=== PATIENT | male | born 1980 | race Caucasian/White ===

== ENCOUNTER 2018-03-12 11:41 | Emergency (ER) | payer MEDICAID, OTHER ==
[~2018-03-12] VITALS: Ht 177.8 cm; Wt 65.8 kg
[2018-03-12 11:52] VITALS: BP 113/57
[2018-03-12] MEDS ORDERED: cefTRIAXone SOD 1,000 MG VL IM ONE (12:45)
[2018-03-12] MEDS ORDERED: LIDOCAINE 1%HCL (LOCAL ANESTH) 10 ML MDV ONE (12:48)
[2018-03-12] MEDS ORDERED: cefTRIAXone SOD 1,000 MG VL ONE (12:48)
== END 2018-03-12 13:03 | disposition home or self-care (01) ==
LOC: ER 11:44
DX: J45.909 Unspecified asthma, uncomplicated (principal); L02.31 Cutaneous abscess of buttock
CPT/HCPCS: 96372; 99283; J0696; J2001

== ENCOUNTER 2020-10-30 14:48 | Emergency (ER) | payer MEDICAID ==
[~2020-10-30] VITALS: Ht 167.6 cm; Wt 56.7 kg
[2020-10-30 14:55] VITALS: BP 125/65
[2020-10-30] MEDS ORDERED: SODIUM CHLORIDE 0.9% 1,000 ML IV ONE (15:15)
== END 2020-10-30 16:40 | disposition left against medical advice (07) ==
LOC: EDBD 14:48 → ER 14:48
DX: R53.1 Weakness (principal); F12.10 Cannabis abuse, uncomplicated; F15.10 Other stimulant abuse, uncomplicated; F17.210 Nicotine dependence, cigarettes, uncomplicated; J45.909 Unspecified asthma, uncomplicated
CPT/HCPCS: 93005

== ENCOUNTER 2023-02-04 15:33 | Emergency (ER) | payer MEDICAID ==
[~2023-02-04] VITALS: Ht 170.2 cm; Wt 56.8 kg
[2023-02-04 16:31] VITALS: PULSE 78; RESP 11; TEMP 98.1; O2SAT 91
[2023-02-04 17:10] LABS: Basophils # (auto) 0 10 ^3/uL (0-0.2); Basophils % (auto) 0.6 % (0.0-2.0); Eosinophils # (auto) 0.1 10 ^3/uL (0-0.8); Eosinophils % (auto) 1.2 % (0.0-7.0); Hematocrit 41.9 % (41.0-53.0); Lymphocytes # (auto) 1.1 10 ^3/uL (0.4-5.4); Lymphocytes % (auto) 14.4 % (10.0-50.0); Mean Corpuscular Hemoglobin 29.7 pg (28.0-32.0); Mean Corpuscular Hgb Conc. 33.3 g/dL (32.0-36.0); Mean Corpuscular Volume 89.1 fL (80.0-100.0); Monocytes # (auto) 0.5 10 ^3/uL (0-1.3); Monocytes % (auto) 7.1 % (0.0-12.0); Neutrophils # (auto) 5.6 10 ^3/uL (1.6-8.6); Neutrophils % (auto) 76.7 % (37.0-80.0); Nucleated Red Blood Cells % 0.1 %; Red Blood Cells 4.71 10^6/uL (4.5-5.90); Red Cell Distribution Width 13.4 % (11.8-14.3); White Blood Cell 7.3 10^3/uL (4.4-10.8)
[2023-02-04 17:25] LABS: Alanine Aminotransferase 39 U/L (7-40); Albumin 4.8 g/dL (3.2-4.8); Alkaline Phosphatase 100 U/L (46-116); Anion Gap 7 (5-15); Aspartate Aminotransferase 30 U/L (13-40); BUN/Creatinine Ratio 8.6 (10.0-20.0); Blood Urea Nitrogen 10 mg/dL (9-23); Calcium 9.5 mg/dL (8.7-10.4); Carbon Dioxide 26 mmol/L (20-30); Chloride 108 mmol/L (98-107); Glucose 113 mg/dL (74-106); Potassium 4.3 mmol/L (3.5-5.1); Sodium 141 mmol/L (136-145)
[2023-02-04 17:26] LABS: Bilirubin, Total 0.4 mg/dL (0.2-1.0)
[2023-02-04 18:00] VITALS: BP 115/78; PULSE 70; RESP 9; O2SAT 92
== END 2023-02-04 16:48 | disposition home or self-care (01) ==
LOC: EDBD 15:33 → ER 15:33
DX: S70.02XA Contusion of left hip, initial encounter (principal); S09.8XXA Other specified injuries of head, initial encounter; J45.909 Unspecified asthma, uncomplicated; M54.2 Cervicalgia; M54.50 Low back pain, unspecified; F17.210 Nicotine dependence, cigarettes, uncomplicated; F12.10 Cannabis abuse, uncomplicated; F15.10 Other stimulant abuse, uncomplicated; W05.0XXA Fall from non-moving wheelchair, initial encounter; Y93.89 Activity, other specified; Y92.481 Parking lot as the place of occurrence of the external cause; Y99.8 Other external cause status
CPT/HCPCS: 36415; 70450; 72125; 72192; 80053; 80320; 85025

== ENCOUNTER 2023-02-05 02:06 | Inpatient (IN) | payer MEDICAID ==
[~2023-02-05] VITALS: Ht 177.8 cm; Wt 56.8 kg
[2023-02-05 02:45] LABS: Basophils # (auto) 0 10 ^3/uL (0-0.2); Basophils % (auto) 0.5 % (0.0-2.0); Eosinophils # (auto) 0.1 10 ^3/uL (0-0.8); Eosinophils % (auto) 0.7 % (0.0-7.0); Hematocrit 43.9 % (41.0-53.0); Hemoglobin 14.5 g/dL (13.5-17.5); Lymphocytes # (auto) 1.4 10 ^3/uL (0.4-5.4); Lymphocytes % (auto) 14.1 % (10.0-50.0); Mean Corpuscular Hemoglobin 29.6 pg (28.0-32.0); Mean Corpuscular Volume 89.7 fL (80.0-100.0); Monocytes # (auto) 0.8 10 ^3/uL (0-1.3); Monocytes % (auto) 8.2 % (0.0-12.0); Neutrophils # (auto) 7.4 10 ^3/uL (1.6-8.6); Neutrophils % (auto) 76.5 % (37.0-80.0); Red Cell Distribution Width 13.6 % (11.8-14.3); White Blood Cell 9.7 10^3/uL (4.4-10.8)
[2023-02-05 02:52] VITALS: PULSE 107; RESP 13; O2SAT 95
[2023-02-05 03:01] LABS: Alanine Aminotransferase 40 U/L (7-40); Albumin 5.1 g/dL (3.2-4.8); Alkaline Phosphatase 107 U/L (46-116); Anion Gap 10 (5-15); Aspartate Aminotransferase 29 U/L (13-40); BUN/Creatinine Ratio 13.1 (10.0-20.0); Bilirubin, Total 0.5 mg/dL (0.2-1.0); Blood Urea Nitrogen 16 mg/dL (9-23); Calcium 10.1 mg/dL (8.7-10.4); Carbon Dioxide 25 mmol/L (20-30); Chloride 107 mmol/L (98-107); Glucose 121 mg/dL (74-106); Magnesium 2.3 mg/dL (1.6-2.6); Potassium 3.8 mmol/L (3.5-5.1); Sodium 142 mmol/L (136-145)
[2023-02-05 03:02] LABS: Total Protein 8.4 g/dL (5.7-8.2)
[2023-02-05 03:28] LABS: INR 1.04 (0.9-1.15); Partial Thromboplastin Time 27.3 SEC (24.5-34.5); Prothrombin Time 10.9 sec (9.3-11.8)
[2023-02-05 03:58] LABS: Base Excess 1.3 mmol/L (-2.0-2.0)
[2023-02-05] MEDS ORDERED: DexAMETHasone SOD PHOS 10MG/1ML VIAL INJ IV ONE (04:00)
[2023-02-05] MEDS ORDERED: cefTRIAXone 1GM/50ML D5W 50 ML IV ONE (04:00)
[2023-02-05] MEDS ORDERED: AZITHROMYCIN 500MG/ 250ML 250 ML IV ONE (04:00)
[2023-02-05] MEDS ORDERED: ALBUTEROL SULF 2.5 MG/0.5ML(0.5%) NEB SOLN HHN ONE (04:00)
[2023-02-05] MEDS ORDERED: ASPirin 81 mg TAB PO ONE (04:00)
[2023-02-05] MEDS ORDERED: ONDANSETRON HCL 4 MG/2 ML VIAL IV ONE (04:00)
[2023-02-05] MEDS ORDERED: ACETAMINOPHEN 325 MG TAB PO ONE (04:00)
[2023-02-05] MEDS ORDERED: IPRATROPIUM BROM 0.5 MG/2.5ML INH SOL HHN ONE (04:00)
[2023-02-05 04:14] LABS: Blood Alcohol 3.8 mg/dL (<10); Magnesium 2.3 mg/dL (1.6-2.6)
[2023-02-05 04:38] LABS: COVID19 ANTIGEN SOFIA FIA NEGATIVE (NEGATIVE)
[2023-02-05] MEDS ORDERED: DOCUSATE SOD 100 MG CAP PO PRN (04:45)
[2023-02-05] MEDS ORDERED: HYDROcodone-ACET 5/325MG TAB PO PRN (04:45)
[2023-02-05] MEDS ORDERED: ACETAMINOPHEN 325 MG TAB PO PRN (04:45)
[2023-02-05] MEDS ORDERED: IPRATROPIUM BROM 0.5 MG/2.5ML INH SOL NEB PRN (04:45)
[2023-02-05] MEDS ORDERED: ONDANSETRON HCL 4 MG/2 ML VIAL IV PRN (04:45)
[2023-02-05] MEDS ORDERED: ALBUTEROL SULF 2.5 MG/0.5ML(0.5%) NEB SOLN NEB PRN (04:45)
[2023-02-05 04:58] LABS: Respiratory Syncytial Virus Ag Negative
[2023-02-05 04:59] LABS: Rapid Influenza A Negative (Negative); Rapid Influenza B Negative (Negative)
[2023-02-05] MEDS ORDERED: LORazepam 2MG/ML-1ML VIAL IV PRN (05:00)
[2023-02-05 05:31] LABS: Acetaminophen < 2.0 UG/ML (10.0-20.0)
[2023-02-05 05:32] LABS: Salicylate < 3.0 mg/dL (2.8-20.0)
[2023-02-05] MEDS: SODIUM CHLOR 0.9% PF (SALINE LOCK) 10ML VIAL/SYR IV SCH ×2 (06:03→14:10)
[2023-02-05 06:07] LABS: Basophils # (auto) 0 10 ^3/uL (0-0.2); Basophils % (auto) 0.4 % (0.0-2.0); Eosinophils # (auto) 0.1 10 ^3/uL (0-0.8); Hematocrit 40.3 % (41.0-53.0); Hemoglobin 13.6 g/dL (13.5-17.5); Lymphocytes # (auto) 1.9 10 ^3/uL (0.4-5.4); Lymphocytes % (auto) 20.7 % (10.0-50.0); Mean Corpuscular Hemoglobin 30.2 pg (28.0-32.0); Mean Corpuscular Hgb Conc. 33.7 g/dL (32.0-36.0); Mean Corpuscular Volume 89.6 fL (80.0-100.0); Monocytes # (auto) 0.8 10 ^3/uL (0-1.3); Monocytes % (auto) 9.3 % (0.0-12.0); Neutrophils # (auto) 6.2 10 ^3/uL (1.6-8.6); Neutrophils % (auto) 68.6 % (37.0-80.0); Nucleated Red Blood Cells % 0.1 %; Red Blood Cells 4.49 10^6/uL (4.5-5.90); Red Cell Distribution Width 13.3 % (11.8-14.3)
[2023-02-05 06:21] LABS: Alanine Aminotransferase 39 U/L (7-40); Albumin 4.4 g/dL (3.2-4.8); Alkaline Phosphatase 90 U/L (46-116); Anion Gap 12 (5-15); Aspartate Aminotransferase 29 U/L (13-40); BUN/Creatinine Ratio 18.2 (10.0-20.0); Blood Urea Nitrogen 20 mg/dL (9-23); Calcium 9.4 mg/dL (8.5-10.1); Carbon Dioxide 23 mmol/L (20-30); Chloride 107 mmol/L (98-107); Glucose 106 mg/dL (74-106); Potassium 4.1 mmol/L (3.5-5.1); Sodium 142 mmol/L (136-145); Total Protein 7.2 g/dL (5.7-8.2)
[2023-02-05 06:22] LABS: Bilirubin, Total 0.4 mg/dL (0.2-1.0)
[2023-02-05] MEDS ORDERED: NITROGLYCERIN 0.4 MG SL TAB SL PRN (07:15)
[2023-02-05] MEDS ORDERED: MORPHINE SULFATE INJ 2 MG/ml SYRG IV PRN (07:15)
[2023-02-05 07:35] VITALS: PULSE 100; RESP 12; O2SAT 98
[2023-02-05 08:58] VITALS: BP 114/86; PULSE 100; RESP 12; TEMP 97.6; O2SAT 98
[2023-02-05] MEDS: SULFAMETH-TRIMETH 80/16MG-ML 10 ML in D5W 5% 250 ML IV SCH ×2 (09:00→14:58)
[2023-02-05 10:00] VITALS: O2SAT 98
[2023-02-05] MEDS ORDERED: DexAMETHasone SOD PHOS 10MG/1ML VIAL INJ IV SCH (10:00)
[2023-02-05] MEDS ORDERED: ASPirin 81 mg TAB PO SCH (10:00)
[2023-02-05 13:24] LABS: Urine Bacteria NONE SEEN /hpf (None Seen); Urine Blood Negative /uL (Negative); Urine Clarity Clear (Clear); Urine Color Yellow (Yellow); Urine Mucus FEW (None Seen); Urine Protein, UAD 1+ (Negative); Urine Specific Gravity 1.031 (1.001-1.035); Urine WBC 2 /hpf (0 - 3)
[2023-02-05 13:51] LABS: Amphetamine Screen, Urine Pos (NEGATIVE); Barbiturate Scree,Urine Neg (NEGATIVE); Benzodiazephine Screen, Urine Neg (NEGATIVE); Cannabinoid Screen, Urine Neg (NEGATIVE); Cocaine Screen, Urine Neg (NEGATIVE); Opiate Scree,Urine Neg (NEGATIVE); Phencyclidine Screen, Urine Pos (NEGATIVE)
[2023-02-05 15:35] VITALS: BP 98/64; PULSE 86; RESP 14; O2SAT 92
== END 2023-02-05 16:48 | disposition home or self-care (01) | DRG 203 ==
LOC: ER 02:06 → TELE 07:05
PROVIDERS: ADMIT Nurse Practitioner Family; ATTEND Nurse Practitioner Family
DX: R07.89 Other chest pain (principal); S09.90XA Unspecified injury of head, initial encounter; F29 Unspecified psychosis not due to a substance or known physiological condition; R62.7 Adult failure to thrive; Z20.822 Contact with and (suspected) exposure to COVID-19; F11.90 Opioid use, unspecified, uncomplicated; G89.29 Other chronic pain; J45.909 Unspecified asthma, uncomplicated; W18.39XA Other fall on same level, initial encounter; K59.00 Constipation, unspecified; R09.02 Hypoxemia; Z68.1 Body mass index [BMI] 19.9 or less, adult; Z88.8 Allergy status to other drugs, medicaments and biological substances; Y93.89 Activity, other specified; Y92.89 Other specified places as the place of occurrence of the external cause; Y99.8 Other external cause status; Z21 Asymptomatic human immunodeficiency virus [HIV] infection status
CPT/HCPCS: 36415; 36600; 71045; 80053; 80307; 80320; 80329; 81001; 82805; 83605; 83735; 83880; 84484; 85025; 85610; 85730; 87040; 87426; 87804; 87807; 93005; 94640; 96365; 96368; 96375; 99291; G0378; J0696; J1100; J2405; J3490; J7060

== ENCOUNTER → 2023-06-13 | Emergency (ER) | payer MEDICAID ==
[~2023-06-13] VITALS: Ht 180.3 cm; Wt 59.0 kg
[2023-06-13 11:51] VITALS: BP 119/73; PULSE 72; RESP 18; O2SAT 95
== END | disposition left against medical advice (07) ==
LOC: ER 11:28
DX: T78.40XA Allergy, unspecified, initial encounter (principal); J45.909 Unspecified asthma, uncomplicated; F17.210 Nicotine dependence, cigarettes, uncomplicated; F12.10 Cannabis abuse, uncomplicated; F15.10 Other stimulant abuse, uncomplicated; Z88.1 Allergy status to other antibiotic agents; Z88.6 Allergy status to analgesic agent; X58.XXXA Exposure to other specified factors, initial encounter

== ENCOUNTER 2023-08-22 04:21 | Emergency (ER) | payer MEDICAID ==
[~2023-08-22] VITALS: Ht 180.3 cm; Wt 61.0 kg
[2023-08-22 05:02] VITALS: BP 113/75; PULSE 63; RESP 20; TEMP 98.5; O2SAT 98
[2023-08-22] MEDS ORDERED: IBUP1TAB5 PO (05:02)
[2023-08-22] MEDS: IBUPROFEN 800 MG TAB PO ONE (05:30)
== END 2023-08-22 05:00 | disposition home or self-care (01) ==
LOC: ER 04:21
DX: S52.502A Unspecified fracture of the lower end of left radius, initial encounter for closed fracture (principal); J45.909 Unspecified asthma, uncomplicated; F17.210 Nicotine dependence, cigarettes, uncomplicated; Z88.1 Allergy status to other antibiotic agents; Z88.6 Allergy status to analgesic agent; Z91.041 Radiographic dye allergy status; W06.XXXA Fall from bed, initial encounter; Y93.89 Activity, other specified; Y92.89 Other specified places as the place of occurrence of the external cause; Y99.8 Other external cause status
CPT/HCPCS: 29125; 73110

== ENCOUNTER 2025-03-04 16:22 | Emergency (ER) | payer MEDICAID ==
[~2025-03-04] VITALS: Ht 177.8 cm; Wt 55.0 kg
[~2025-03-04 16:22] MED LIST: IBUP1TAB5 PO
--- NOTE | 2025-03-04 17:42 | DVH ---
Indication: lower abd pain n/v Technique: CT axial images of the abdomen and pelvis are obtained without contrast. Coronal and sagit daniele reformats were obtained. Radiation Dose Information: CTDI volume is 4.99 mGy. Dose-length product is 256.45 mGy*cm Comparison: CT ABD/PEL on DOS: 11/25/22, CT ABD/PEL on DOS: 11/18/22 FINDINGS: There is limited interpretation of the abdomen and pelvis without administration of intravenous contr ast. The lung bases demonstrate atelectasis. Adrenal glands, spleen, pancreas, liver unremarkable in shape. No CT evidence for cholelithiasis. No hydronephrosis/ nephrolithiasis. Stomach partially distended. Small bowel loops are normal in caliber. Large volume stool throughout the colon there are no secondary signs for appendicitis. Atherosclerotic disease. Bladder partially distended. No free pelvic fluid. No inguinal lymphadenopa thy. Lytic lesions within the bilateral iliac bones measuring up to 2. cm within the right iliac bone IMPRESSION: Limited evaluation without contrast. Large volume stool throughout the colon suggesting constipation. Lytic lesions within the bilateral iliac bones, similar to previous examination. Correlate for inter osseous bone cysts, hemangioma, metastases, myeloma. Other findings as described.
--- NOTE | 2025-03-04 17:45 | ED.PDOC ---
GI ASSESSMENT HPI Comments HPI: 44-year-old male presents to emergency depart for evaluation of lower abdominal pain constant nonradiating. Onset of symptoms yesterday. No alleviating or precipitating factors. Patient states he has history of constipation and he is on methadone. Last bowel movement was this morning very small normal in color. Denies any nausea or vomiting chest pain or shortness of breath. Past Medical history: botulism HIV, Asthma, on methadone Past Surgical history: left hand sx Medications: Methadone Social History: Denies smoking, ETOH, and drug use. Allergies: propofol HPI: Poor Historian. REVIEW OF SYSTEMS: CONSTITUTIONAL: Denies acute: fever, diaphoresis, chills, generalized weakness. HEAD: Denies acute: headache, photophobia Eyes: Denies acute: Double vision, vision loss, eye pain, eye discharge. EARS: Denies acute: tinnitus, hearing loss, ear discharge, ear pain, THROAT: Denies acute: sore throat, swelling, difficulty swallowing , pain with swallowing, change in voice. NECK: Denies acute: neck pain, neck swelling, stiff neck. HEART: Denies acute : chest pain, palpitations, LUNGS: Denies acute: SOB, wheezing, cough, hemoptysis ABDOMEN: Denies acute: Nausea, Vomiting, diarrhea, melena , hematemesis, hematochezia SKIN: Denies acute: rash, redness, lesions, itchiness. EXTREMITIES: Denies acute: calf pain, numbness, tingling, weakness, denies pain in extremity. Denies acute: Low back pain. Neuro: Denies acute: focal neurological deficit, motor or sensory focal neurological deficit, tremors, seizure like activity, confusion, dizziness, change in mental status, loss of bowel or bladder function, cauda equina like symptoms. : Denies acute: dysuria, hematuria, flank pain, increase in urinary frequency. PSYCH: Denies acute: hallucination, suicidal ideation, homicidal ideation. PHYSICAL EXAM: General: ----my----acute distress, awake and alert. Head: normocephalic, atraumatic. No raccoon's eyes, no haile sign. Neck: supple, trachea is midline, no swelling. Throat: Normal phonation. Eyes:, no erythema, no purulent discharge, no proptosis, no icterus. Heart: regular rate, regular rhythm, no significant murmur appreciated. Lungs: no apparent respiratory distress, Able to speak in full sentences. No wheezing, no rhonchi, no crackles. No stridors Clear to auscultation bilaterally. Abdomen: Mild lower abdominal tender to palpation, non distended, soft, no guarding, no rebound, + bowel sounds. Neuro: Awake, Alert, oriented to name, self, situation, follows commands GCS=15. Skin: no petechia, no purpura, no cyanosis, non-pale, not jaundice. Lower extremities: --no - Pitting edema no deformity, no focal swelling, no calf TTP. Makes eye contact. moves all four extremities. Face: no apparent facial droop. ED COURSE: DISCLAIMER: This medical document was created using an electronic medical record system with voice recognition software and computerized dictation system. Although this document has been carefully reviewed, there might still be some phonetic and typographical errors. Occasional wrong-word or "sound-alike" substitutions may have occurred due to the inherent limitations of voice recognition software. These areas are purely typographical due to imperfections of the software programs and do not reflect any compromise in the patient's medical care. Please read the chart carefully and recognize, using context, where these substitutions have occurred. Chief Complaint: Abdominal Pain Time Seen by MD: 17:45 Primary Care Provider: unknown Reviewed Notes: Nurses Notes, Medications, Allergies Allergies: Coded Allergies: Ciprofloxacin (Verified Allergy, Intermediate, hives, 06/13/23) Iodine (Verified Allergy, Unknown, 02/05/23) Propofol (Verified Allergy, Unknown, 06/13/23) Uncoded Allergies: IODIONE (Allergy, Unknown, 03/12/18) Home Meds Active Scripts Ibuprofen Micronized (Ibuprofen) 600 Mg Tab, 1 TAB PO Q6HPRN PRN, #20 TAB as needed for pain Prov:RADHA MENDOZA [employer]ER 08/22/23 Information Source: Patient Mode of Arrival: EMS Was a procedure done? Was a procedure done?: No GI differential Dx Differential Diagnosis: Other (DDX include but not limited to diverticulitis, colitis, gastroenteritis, acute abdomen, SBO, enteritis, constipation, volvulus, appendicitis, Gallbladder disease, choledocolithiasis, ascending cholangitis, pancreatitis, intraAbdominal mass/neoplasm, hepatitis, UTI, pylonephritis, kidney stone, aneurysm, dissection, Inflammatory bowel disease, gastroparesis, ischemic bowel.Food poisoning, bacterial/parasitic/viral etiology, trauma, diabetes DKA,) X-Ray, Labs, Meds, VS Vital Signs Date Time Temp Pulse Resp B/P (MAP) Pulse Ox O2 Delivery O2 Flow Rate FiO2 03/04/25 18:01 78 17 96 Room Air 03/04/25 18:01 98.9 78 16 117/86 (96) 96 98.9 03/04/25 16:26 98.9 79 18 140/80 97 98.9 Lab Test 03/04/25 17:30 03/04/25 17:19 Range/Units Urine Color Light-yellow Yellow Urine Clarity Clear Clear Urine pH 6.5 5.0-9.0 Urine Specific [place] 1.009 1.001-1.035 Urine Protein Negative Negative Urine Ketones Negative Negative Urine Blood Negative Negative /uL Urine Nitrite Negative Negative Urine Bilirubin Negative Negative Urine Urobilinogen Normal Negative mg/dL Urine Leukocyte Esterase Negative Negative /uL Urine RBC None seen 0 - 3 /hpf Urine Microscopic WBC < 1 0-3 /HPF Urine Squamous Epithelial Cells None seen <5 /hpf Urine Bacteria None seen None Seen /hpf Urine Glucose Normal Normal mg/dL White Blood Count 5.4 4.4-10.8 10^3/uL Red Blood Count 4.63 4.5-5.90 10^6/uL Hemoglobin 14.3 13.5-17.5 g/dL Hematocrit 42.5 41.0-53.0 % Mean Corpuscular Volume 91.7 80.0-100.0 fL Mean Corpuscular Hemoglobin 30.9 28.0-32.0 pg Mean Corpuscular Hemoglobin Concent 33.7 32.0-36.0 g/dL Red Cell Distribution Width 13.2 11.8-14.3 % Platelet Count 228 140-450 10^3/uL Mean Platelet Volume 6.4 L 6.9-10.8 fL Neutrophils (%) (Auto) 69.6 37.0-80.0 % Lymphocytes (%) (Auto) 19.8 10.0-50.0 % Monocytes (%) (Auto) 7.7 0.0-12.0 % Eosinophils (%) (Auto) 2.4 0.0-7.0 % Basophils (%) (Auto) 0.5 0.0-2.0 % Neutrophils # (Auto) 3.8 1.6-8.6 10 ^3/uL Lymphocytes # (Auto) 1.1 0.4-5.4 10 ^3/uL Monocytes # (Auto) 0.4 0-1.3 10 ^3/uL Eosinophils # (Auto) 0.1 0-0.8 10 ^3/uL Basophils # (Auto) 0 0-0.2 10 ^3/uL Nucleated Red Blood Cells 0.0 % Sodium Level 138 136-145 mmol/L Potassium Level 4.7 3.5-5.1 mmol/L Chloride Level 104 98-107 mmol/L Carbon Dioxide Level 27 20-31 mmol/L Anion Gap 7 5-15 Blood Urea Nitrogen 16 9-23 mg/dL Creatinine 1.23 0.700-1.30 mg/dL Glomerular Filtration Rate Calc 75 >90 mL/min BUN/Creatinine Ratio 13.0 10.0-20.0 Serum Glucose 73 L 74-106 mg/dL Lactic Acid Level 2.0 0.4-2.0 mmol/L Calcium Level 9.9 8.7-10.4 mg/dL Total Bilirubin 0.7 0.2-1.0 mg/dL Aspartate Amino Transferase (AST) 26 13-40 U/L Alanine Aminotransferase (ALT) 17 7-40 U/L Alkaline Phosphatase 55 46-116 U/L Total Protein 7.4 5.7-8.2 g/dL Albumin 4.7 3.2-4.8 g/dL Lipase 27 12-53 U/L Current Medications Medications (Trade) Dose Ordered Sig/Jeannie Route Start Time Stop Time Status Last Admin Lactulose 30 ml ONCE ONCE PO 03/04/25 17:45 03/04/25 17:46 DC 03/04/25 17:53 Sodium Chloride 1,000 ml @ 1,000 mls/hr Q1H ONCE IV 03/04/25 17:45 03/04/25 18:44 DC 03/04/25 17:53 Albuterol (Ventolin Medneb) 2.5 mg ONCE ONCE NEB 03/04/25 19:30 03/04/25 19:31 DC 03/04/25 19:54 Ipratropium [place] (Atrovent Medneb) 1 mg ONCE ONCE NEB 03/04/25 19:30 03/04/25 19:31 DC 03/04/25 19:[address] [address] Ph: [phone] DIAGNOSTIC IMAGING Diagnostic Imaging Report : [id number] Signed PATIENT: DEBBIE STEWART ACCT: [id number] UNIT: [id number] : 1980 LOC: ER ROOM / BED: / AGE / SEX: 44 / M ADM STATUS: REG ER SERVICE 1640 ORDERING PHYSICIAN: GARETH PEREZ DO PROCEDURE(s): ABPL - CT AB PEL WO CON-NO ORAL OR IV REASON: lower abd pain n/v ORDER NUMBER(s): [id number], ACCESSION NUMBER(s): [id number] Indication: lower abd pain n/v Technique: CT axial images of the abdomen and pelvis are obtained without c ontrast. Coronal and sagittal reformats were obtained. Radiation Dose Information: CTDI volume is 4.99 mGy. Dose-length product is 256.45 mGy*cm Comparison: CT ABD/PEL on DOS: 11/25/22, CT ABD/PEL on DOS: 11/18/22 FINDINGS: There is limited interpretation of the abdomen and pelvis without administration of intravenous contrast. The lung bases demonstrate atelectasis. Adrenal glands, spleen, pancreas, liver unremarkable in shape. No CT evidence for cholelithiasis. No hydronephrosis/ nephrolithiasis. Stomach partially distended. Small bowel loops are normal in caliber. Large volume stool throughout the colon there are no secondary signs for appendicitis. Atherosclerotic disease. Bladder partially distended. No free pelvic fluid. No inguinal lymphadenopathy. Lytic lesions within the bilateral iliac bones measuring up to 2. cm within the right iliac bone IMPRESSION: Limited evaluation without contrast. Large volume stool throughout the colon suggesting constipation. Lytic lesions within the bilateral iliac bones, similar to previous examination. Correlate for interosseous bone cysts, hemangioma, metastases, myeloma. Other findings as described. ATED BY: SHAUN BIGGS MD DICTATED DATE/TIME: 03/04/25 5235 SIGNED BY: SHAUN BIGGS MD SIGNED DATE/TIME: 03/04/251743 CC: Time of 1ST Reevaluation: 18:15 Reevaluation 1ST: Unchanged Patient Education/Counseling: Diagnosis, Treatment, Prognosis Family Education/Counseling: No Family Present Comments MDM: patient presented with the above HPI.----abdominal pain/constipation--workup was initiated. patient was found with the above mentioned diagnosis. the following medications were ordered: please refer to order lists of meds and tests obtained by myself Dr. Perez. Patient ED course and VS have been stabilized. Patient has been reassessed in the ED and remained in a stable condition. Pertinent incidental findings were discussed with the patient and/or family. Patient/family voices understanding and is agreeable with plan. Patient has been observed in the ED adequate length of time to insure improv ement/stability. Escalation of care considered: Consideration of escalation to observation or admission Patient was DISCHARGED home in a stable condition. All the reports of any imaging studies that were ordered by myself were reviewed by myself. [place] [address] Ph: [phone] DIAGNOSTIC IMAGING Diagnostic Imaging Report : [id number] Signed PATIENT: DEBBIE STEWART ACCT: [id number] UNIT: [id number] : 1980 LOC: ER ROOM / BED: / AGE / SEX: 44 / M ADM STATUS: REG ER SERVICE 1640 ORDERING PHYSICIAN: GARETH PEREZ DO PROCEDURE(s): ABPL - CT AB PEL WO CON-NO ORAL OR IV REASON: lower abd pain n/v ORDER NUMBER(s): [id number], ACCESSION NUMBER(s): [id number] Indication: lower abd pain n/v Technique: CT axial images of the abdomen and pelvis are obtained without contrast. Coronal and sagittal reformats were obtained. Radiation Dose Information: CTDI volume is 4.99 mGy. Dose-length product is 256.45 mGy*cm Comparison: CT ABD/PEL on DOS: 11/25/22, CT ABD/PEL on DOS: 11/18/22 FINDINGS: There is limited interpretation of the abdomen and pelvis without administration of intravenous contrast. The lung bases demonstrate atelectasis. Adrenal glands, spleen, pancreas, liver unremarkable in shape. No CT evidence for cholelithiasis. No hydronephrosis/ nephrolithiasis. Stomach partially distended. Small bowel loops are normal in caliber. Large volume stool throughout the colon there are no secondary signs for appendicitis. Atherosclerotic disease. Bladder partially distended. No free pelvic fluid. No inguinal lymphadenopathy. Lytic lesions within the bilateral iliac bones measuring up to 2. cm within the right iliac bone IMPRESSION: Limited evaluation without contrast. Large volume stool throughout the colon suggesting constipation. Lytic lesions within the bilateral iliac bones, similar to previous examination. Correlate for interosseous bone cysts, hemangioma, metastases, myeloma. Other findings as described. ATED BY: SHAUN BIGGS MD DICTATED DATE/TIME: 03/04/251743 SIGNED BY: SHAUN BIGGS MD SIGNED DATE/TIME: 03/04/251743 CC: SEPSIS Sepsis Screen Date sepsis recognized/suspect: Mar 04, 2025 Time Sepsis recognized/suspect: 1628 Recent Procedure: No On Antibiotic Therapy: No Respiratory Rate >20: No Heart Rate >90: No Temp<36 C (96.8 F) or >38.3 C: No SBP <90 or MAP <65 mmHG: No New Acute Mental Status Change: No Is the patient on CPAP, BIPAP,: No Physician Orders Plastic Sheeting Cutter (03/04/25 ) Ct Ab Pel Wo Con-No Oral Or Iv (03/04/25 16:40) Vital Signs Date Time Temp Pulse Resp B/P (MAP) Pulse Ox O2 Delivery O2 Flow Rate FiO2 03/04/25 18:01 78 17 96 Room Air 03/04/25 18:01 98.9 78 16 117/86 (96) 96 98.9 03/04/25 16:26 98.9 79 18 140/80 97 98.9 Laboratory Tests Test 03/04/25 17:19 Lactic Acid Level 2.0 mmol/L (0.4-2.0) White Blood Count 5.4 10^3/uL (4.4-10.8) Medications Medications Dose Ordered Sig/Jeannie Route Start Time Stop Time Status Last Admin Dose Admin Albuterol 2.5 mg ONCE ONCE NEB 03/04/25 19:30 03/04/25 19:31 DC 03/04/25 19:54 Ipratropium [place] 1 mg ONCE ONCE NEB 03/04/25 19:30 03/04/25 19:31 DC 03/04/25 19:53 Lactulose 30 ml ONCE ONCE PO 03/04/25 17:45 03/04/25 17:46 DC 03/04/25 17:53 Sodium Chloride 1,000 ml @ 1,000 mls/hr Q1H ONCE IV 03/04/25 17:45 03/04/25 18:44 DC 03/04/25 17:53 Departure 1 Departure Time of Disposition: 18:41 Impression: Primary Impression: Constipation Additional Impressions: Abnormal finding on CT scan Abdominal pain Disposition: HOME / SELF CARE / HOMELESS Condition: Stable Additional Instructions: Additional instructions: Please read all instructions provided in this packet carefully. You MUST follow-up with your primary care/family doctor in 1 to 2 days. If you are unable to see your primary care/family doctor, please return to our emergency room for re-assessment and re-evaluation in 1 to 2 days. Return to the emergency room here in our facility or to the nearest ER [facility] if your symptoms change or worsen. CONSULTATIONS: you MUST Follow-up for consultation as soon as possible with: -gastroenterology in 1-2 days. Please call for appointment. You MUST call the consultants office yourself to make an appointment. You may need to arrange that through your insurance and/or your primary/family doctor. If you are unable to see the senior science consultant in 1 to 2 days, you must return to our emergency room (or any other ER of your choice) for re-assessment and re- evaluation. Adequate fluid hydration. Although you have been discharged from the Emergency Department, this does not mean that you have a "clean bill of health". No definitive diagnosis for your symptoms has been made today. It is possible that you are in the process of dev eloping a serious illness. This is why you must return to the ED without fail if any new or worsening symptoms develop. Liquid diet in next 72 hours. Increase fiber intake. Below is a copy of your radiological report for follow up: [facility] [id number] [place] [address] Ph: [phone] DIAGNOSTIC IMAGING Diagnostic Imaging Report : [id number] Signed PATIENT: DEBBIE STEWART ACCT: [id number] UNIT: [id number] : 1980 LOC: ER ROOM / BED: / AGE / SEX: 44 / M ADM STATUS: REG ER SERVICE 1640 ORDERING PHYSICIAN: GARETH PEREZ DO PROCEDURE(s): ABPL - CT AB PEL WO CON-NO ORAL OR IV REASON: lower abd pain n/v ORDER NUMBER(s): [id number], ACCESSION NUMBER(s): [id number] Indication: lower abd pain n/v Technique: CT axial images of the abdomen and pelvis are obtained without contrast. Coronal and sagittal reformats were obtained. Radiation Dose Information: CTDI volume is 4.99 mGy. Dose-length product is 256.45 mGy*cm Comparison: CT ABD/PEL on DOS: 11/25/22, CT ABD/PEL on DOS: 11/18/22 FINDINGS: There is limited interpretation of the abdomen and pelvis without administration of intravenous contrast. The lung bases demonstrate atelectasis. Adrenal glands, spleen, pancreas, liver unremarkable in shape. No CT evidence for cholelithiasis. No hydronephrosis/ nephrolithiasis. Stomach partially distended. Small bowel loops are normal in caliber. Large volume stool throughout the colon there are no secondary signs for appendicitis. Atherosclerotic disease. Bladder partially distended. No free pelvic fluid. No inguinal lymphadenopathy. Lytic lesions within the bilateral iliac bones measuring up to 2. cm within the right iliac bone IMPRESSION: Limited evaluation without contrast. Large volume stool throughout the colon suggesting constipation. Lytic lesions within the bilateral iliac bones, similar to previous examination. Correlate for interosseous bone cysts, hemangioma, metastases, myeloma. Other findings as described. ATED BY: SHAUN BIGGS MD DICTATED DATE/TIME: 03/04/251743 SIGNED BY: SHAUN BIGGS MD SIGNED DATE/TIME: 03/04/251743 CC: Discharged With: Self Critical Care Note Critical Care Time?: No Heart Score Heart Score: Heart Score Response (Comments) Value History N/A 0 EKG N/A 0 Age N/A 0 Risk Factors N/A 0 Troponin N/A 0 Total 0 I personally scribed for GARETH PEREZ DO ([email or web address]) on 03/04/25 at 17:45. Electronically submitted by Heraclio Massey ([email or web address]). I personally scribed for GARETH PEREZ DO ([email or web address]) on 03/04/25 at 19:37. Electronically submitted by Heraclio Massey ([email or web address]). GARETH PEREZ DO Mar 04, 2025 17:45
[2025-03-04 17:47] LABS: Hematocrit 42.5 % (41.0-53.0); Hemoglobin 14.3 g/dL (13.5-17.5); Mean Corpuscular Hemoglobin 30.9 pg (28.0-32.0); Mean Corpuscular Volume 91.7 fL (80.0-100.0); Nucleated Red Blood Cells % 0.0 %
[2025-03-04] MEDS: SODIUM CHLORIDE 0.9% 1,000 ML IV ONE (17:53)
[2025-03-04] MEDS: LACTULOSE 20Gm/30ML SOLN PO ONE (17:53)
[2025-03-04 17:54] LABS: Alanine Aminotransferase 17 U/L (7-40); Albumin 4.7 g/dL (3.2-4.8); Alkaline Phosphatase 55 U/L (46-116); Anion Gap 7 (5-15); BUN/Creatinine Ratio 13.0 (10.0-20.0); Blood Urea Nitrogen 16 mg/dL (9-23); Calcium 9.9 mg/dL (8.7-10.4); Carbon Dioxide 27 mmol/L (20-31); Chloride 104 mmol/L (98-107); Lipase 27 U/L (12-53); Potassium 4.7 mmol/L (3.5-5.1); Sodium 138 mmol/L (136-145); Total Protein 7.4 g/dL (5.7-8.2)
[2025-03-04 17:55] LABS: Bilirubin, Total 0.7 mg/dL (0.2-1.0)
[2025-03-04 18:42] LABS: Glucose 73 mg/dL (74-106)
[2025-03-04 19:42] LABS: Urine Protein, UAD Negative (Negative)
[2025-03-04] MEDS: IPRATROPIUM BROM 0.5 MG/2.5ML INH SOL NEB ONE (19:53)
[2025-03-04] MEDS: ALBUTEROL SULF 2.5 MG/0.5ML(0.5%) NEB SOLN NEB ONE (19:54)
[2025-03-04 20:18] VITALS: BP 125/86; PULSE 77; RESP 16; TEMP 98.7; O2SAT 95
== END 2025-03-04 20:44 | disposition home or self-care (01) ==
LOC: EDBD 16:22 → ER 16:25
DX: K59.00 Constipation, unspecified (principal); R10.30 Lower abdominal pain, unspecified; J45.909 Unspecified asthma, uncomplicated; Z88.1 Allergy status to other antibiotic agents; Z88.8 Allergy status to other drugs, medicaments and biological substances
CPT/HCPCS: 36415; 74176; 80053; 81001; 83605; 83690; 85025; 94640; 96360